=== PATIENT | male | born 2005 | race Caucasian/White ===

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

== ENCOUNTER 2025-04-07 18:31 | Emergency (ER) | payer OTHER ==
[~2025-04-07] VITALS: Ht 533.4 cm; Wt 68.0 kg
[2025-04-07 18:45] VITALS: BP 125/88
[2025-04-07] MEDS ORDERED: HYDROCODONE/APAP 5-325MG TABLET ONE (19:05)
[2025-04-07] MEDS: HYDROCODONE/APAP 5-325MG TABLET PO ONE (19:12)
[2025-04-07] MEDS ORDERED: HYDR-4209 PO (20:19)
[2025-04-07] MEDS ORDERED: CYCL10TA9 PO (20:19)
[2025-04-07] MEDS ORDERED: ONDA4TAB11 PO (20:19)
[2025-04-07 20:31] VITALS: BP 125/88; O2SAT 99
== END 2025-04-07 20:31 | disposition home or self-care (01) ==
LOC: ER 18:34
DX: R07.89 Other chest pain (principal); M54.2 Cervicalgia; M79.605 Pain in left leg; M79.604 Pain in right leg; M25.512 Pain in left shoulder; M54.9 Dorsalgia, unspecified; Z88.7 Allergy status to serum and vaccine; V89.2XXA Person injured in unspecified motor-vehicle accident, traffic, initial encounter; Y93.89 Activity, other specified; Y92.410 Unspecified street and highway as the place of occurrence of the external cause; Y99.9 Unspecified external cause status
CPT/HCPCS: 71045; 72125; 73030; 73060; 73090; 73590; A4606; A4663